=== PATIENT | female | born 1985 | race Two or more races ===

== ENCOUNTER 2019-08-16 12:49 | Emergency (ER) | payer OTHER ==
[~2019-08-16] VITALS: Ht 165.1 cm; Wt 71.7 kg
[2019-08-16] MEDS ORDERED: LUTERA-28 TABL1 EACH (13:23)
== END 2019-08-16 21:53 | disposition home or self-care (01) ==
LOC: ER 12:49
DX: D25.1 Intramural leiomyoma of uterus (principal); N85.2 Hypertrophy of uterus; N83.02 Follicular cyst of left ovary; N93.8 Other specified abnormal uterine and vaginal bleeding